=== PATIENT | female | born 1980 | race African-American/Black ===

== ENCOUNTER 2021-11-26 07:30 | Emergency (ER) | payer OTHER ==
[~2021-11-26] VITALS: Ht 175.3 cm; Wt 99.8 kg
[2021-11-26 07:54] VITALS: BP 134/85
== END 2021-11-26 08:01 | disposition home or self-care (01) ==
LOC: ER 07:30
DX: G44.209 Tension-type headache, unspecified, not intractable (principal)

== ENCOUNTER 2022-01-31 02:16 | Emergency (ER) | payer OTHER, MEDICAID ==
[~2022-01-31] VITALS: Ht 175.3 cm; Wt 99.8 kg
[2022-01-31 02:17] VITALS: BP 137/91
[2022-01-31] MEDS ORDERED: ACETAMINOPHEN 500 MG TAB PO ONE (03:00)
== END 2022-01-31 02:56 | disposition home or self-care (01) ==
LOC: ER 02:16
DX: S96.911A Strain of unspecified muscle and tendon at ankle and foot level, right foot, initial encounter (principal); Z88.8 Allergy status to other drugs, medicaments and biological substances; X58.XXXA Exposure to other specified factors, initial encounter; Y93.89 Activity, other specified; Y92.89 Other specified places as the place of occurrence of the external cause; Y99.8 Other external cause status

== ENCOUNTER 2022-05-14 16:11 | Emergency (ER) | payer OTHER, MEDICAID ==
[~2022-05-14] VITALS: Ht 175.3 cm; Wt 109.0 kg
[2022-05-14 16:25] VITALS: BP 145/91
[2022-05-14 17:17] LABS: Basophils # (auto) 0.1 10 ^3/uL (0-0.2); Basophils % (auto) 0.6 % (0.0-2.0); Eosinophils # (auto) 0 10 ^3/uL (0-0.8); Eosinophils % (auto) 0.5 % (0.0-7.0); Hematocrit 39.7 % (36.0-46.0); Hemoglobin 12.9 g/dL (12.2-16.2); Lymphocytes # (auto) 0.9 10 ^3/uL (0.4-5.4); Lymphocytes % (auto) 9.1 % (10.0-50.0); Mean Corpuscular Hgb Conc. 32.5 g/dL (32.0-36.0); Mean Corpuscular Volume 95.4 fL (80.0-100.0); Monocytes # (auto) 0.6 10 ^3/uL (0-1.3); Monocytes % (auto) 6.2 % (0.0-12.0); Neutrophils # (auto) 8.1 10 ^3/uL (1.6-8.6); Neutrophils % (auto) 83.6 % (37.0-80.0); Nucleated Red Blood Cells % 0.1 %; Red Blood Cells 4.16 10^6/uL (4.0-5.20); Red Cell Distribution Width 13.7 % (11.8-14.3); White Blood Cell 9.7 10^3/uL (4.4-10.8)
[2022-05-14 17:37] LABS: Albumin 3.6 g/dL (3.4-5.0); BUN/Creatinine Ratio 19.3; Calcium 8.7 mg/dL (8.5-10.1); Potassium 3.9 mmol/L (3.5-5.1)
[2022-05-14 17:41] LABS: Bilirubin, Total 0.4 mg/dL (0.2-1.0); Total Protein 7.6 g/dL (6.4-8.2)
== END 2022-05-14 22:58 | disposition left against medical advice (07) ==
LOC: ER 16:11
DX: R06.00 Dyspnea, unspecified (principal); Z90.710 Acquired absence of both cervix and uterus; Z53.29 Procedure and treatment not carried out because of patient's decision for other reasons
CPT/HCPCS: 36415; 36600; 71046; 80053; 82805; 85025; 85379; 93005

== ENCOUNTER 2023-12-13 22:49 | Emergency (ER) | payer MEDICAID, OTHER ==
[~2023-12-13] VITALS: Ht 175.3 cm; Wt 113.7 kg
[2023-12-13 23:40] VITALS: BP 184/90; PULSE 87; RESP 18; TEMP 98.2; O2SAT 100
[2023-12-14] MEDS ORDERED: CEPH500C PO (03:10)
[2023-12-14] MEDS ORDERED: IBUP1TAB5 PO (03:10)
[2023-12-14] MEDS: TETANUS-DIPTH-ACEL PERTUSSIS 0.5ML SYR Tdap IM ONE (03:15)
[2023-12-14] MEDS: HYDROcodone-ACET 5/325MG TAB PO ONE (03:15)
== END 2023-12-14 03:05 | disposition home or self-care (01) ==
LOC: ER 22:49
DX: S01.511A Laceration without foreign body of lip, initial encounter (principal); S83.92XA Sprain of unspecified site of left knee, initial encounter; S83.91XA Sprain of unspecified site of right knee, initial encounter; S06.0X0A Concussion without loss of consciousness, initial encounter; Y04.2XXA Assault by strike against or bumped into by another person, initial encounter; Y93.89 Activity, other specified; Y92.89 Other specified places as the place of occurrence of the external cause; Y99.8 Other external cause status
CPT/HCPCS: 12013; 70450; 70486

== ENCOUNTER 2025-03-14 04:07 | Emergency (ER) | payer MEDICAID ==
[~2025-03-14] VITALS: Ht 175.3 cm; Wt 114.0 kg
[~2025-03-14 04:07] MED LIST: CEPH500C PO; IBUP1TAB5 PO
[2025-03-14 04:30] VITALS: BP 158/90; PULSE 78; RESP 20; TEMP 98.3; O2SAT 98
--- NOTE | 2025-03-14 04:46 | ED.PDOC ---
Back pain HPI HPI Comments PT C/O 05/04 LOWER BACK AND SHOULDER PAIN X 1 DAY. PT DENIES ANY PAIN ON URINATION, AND TRAUMA OR INJURY. DENIES NUMBNESS, WEAKNESS, LOSS OF BOWEL OR BLADDER CONTROL, KNOWN INJURY, OR SADDLE ANESTHESIA. 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 Family History Family History: Unknown Social History Smoker: Non-Smoker Alcohol: Occasionally Drugs: Denies Drug Use Lives In: Home Constitutional: denies: chills, diaphoresis, fatigue, fever, malaise, sweats, weakness, others EENTM: denies: blurred vision, double vision, ear bleeding, ear discharge, ear drainage, ear pain, ear ringing, eye pain, eye redness, hearing loss, mouth pain, mouth swelling, nasal discharge, nose bleeding, nose congestion, nose pain, photophobia, tearing, throat pain, throat swelling, voice changes, others Respiratory: denies: cough, hemoptysis, orthopnea, SOB at rest, shortness of breath, SOB with excertion, stridor, wheezing, others Cardiovascular: denies: chest pain, dizzy spells, diaphoresis, Dyspnea on exertion, edema, irregular heart beat, left arm pain, lightheadedness, palpitations, PND, syncope, others Gastrointestinal: denies: abdomen distended, abdominal pain, blood streaked bowels, constipated, diarrhea, dysphagia, difficulty swallowing, hematemesis, melena, nausea, poor appetite, poor fluid intake, rectal bleeding, rectal pain, vomiting, others Genitourinary: denies: abnormal vagina bleeding, burning, dyspareunia, dysuria, flank pain, frequency, hematuria, incontinence, pain, , vagina discharge, urgency, others Neurological: denies: dizziness, fainting, headache, left sided numbness, left sided weakness, numbness, paresthesia, pre-existing deficit, right sided numbness, right sided weakness, seizure, speech problems, tingling, tremors, weakness, others Musculoskeletal: reports: back pain; denies: gout, joint pain, joint swelling, muscle pain, muscle stiffness, neck pain, others Integumetry: denies: bruises, change in color, change in hair/nails, dryness, laceration, lesions, lumps, rash, wounds, others Allergic/Immunocompromised: denies: Difficulty Healing, Frequent Infections, Hives, Itching, others Hematologic/Lymphatic: denies: anemia, blood clots, easy bleeding, easy bruising, swollen glands, others Endocrine: denies: excessive hunger, excessive sweating, excessive thirst, excessive urination, flushing, intolerance to cold, intolerance to heat, unexplained weight gain, unexplained weight loss, others Psychiatric: denies: anxiety, bipolar disorder, depression, hopeless, panic disorder, schizophrenia, sleepless, suicidal, others Physical Exam General Appearance: No Apparent Distress, Normal HEENT: Pharynx Normal Neck: Full Range of Motion, Non-Tender Respiratory: Lungs Clear, No Respiratory Distress, Normal Breath Sounds Cardiovascular: No Murmur, Normal Peripheral Pulses, Regular Rate/Rhythm Breast Exam: Deferred Gastrointestinal: No Organomegaly, Non Tender, No Pulsatile Mass, Normal Bowel Sounds, Soft Genitalia: Deferred Pelvic: Deferred Rectal: Deferred Extremities: Normal capillary refill, Normal inspection, Normal range of motion, Non-tender, No pedal edema Musculoskeletal : Location: Bilateral Extremity Location: Back (MODERATE TENDERNESS PALPATED OVER LOWER BILATERAL BACK MUSCULATURE. STRENGTH SENSORY MOTION INTACT NEGATIVE STRAIGHT LEG RAISE BILATERAL POSITIVE PEDAL PULSES. ) Apperance: Normal Neurologic: Alert, No Motor Deficits, Normal Affect, Normal Mood, No Sensory Deficits Cerebellar Function: Normal Reflexes: Normal Skin: Dry, Normal Color, Warm Lymphatic: No Adenopathy Was a procedure done? Was a procedure done?: No Back Pain Differential Dx Differential Diagnosis: Fracture, Musculoskeletal Pain, Strain X-Ray, Labs, Meds, VS Vital Signs Date Time Temp Pulse Resp B/P (MAP) Pulse Ox O2 Delivery O2 Flow Rate FiO2 03/14/25 04:30 98.3 78 20 158/90 (112) 98 98.3 Current Medications Medications (Trade) Dose Ordered Sig/Kat[place] Route Start Time Stop Time Status Last Admin Dexamethasone Sodium Phosphate (Decadron Injection) 10 mg ONCE ONCE IM 03/14/25 05:00 03/14/25 05:01 DC 03/14/25 05:09 Acetaminophen/ Hydrocodone Bitart (Sedan 5/325MG Tab) 1 tab ONCE ONCE PO 03/14/25 05:00 03/14/25 05:01 DC 03/14/25 05:09 X-Ray, Labs, Meds, VS Comment LUMBAR SPINE SHOWS NO ACUTE FRACTURES SUBLUXATIONS OR OSSEOUS LESIONS. PATIENT WAS GIVEN DECADRON 10 MG IM AND NORCO 5 MG P.O. REPORTS IMPROVEMENT IN PAIN AND FUNCTION REQUESTING DISCHARGE AT THIS TIME. SCRIPT TRIAL OF MUSCLE RELAXER AND MEDROL DOSEPAK. TAKE MEDICATIONS PRESCRIBED SIDE EFFECTS DISCUSSED. ADVISED ON HEAT AND ICE. ADVISED TO FOLLOW UP WITH HER PCP IN 2-3 DAYS CONSIDER FURTHER IMAGING SUCH MRI IF SYMPTOMS PERSIST OR REFERRAL TO PHYSICAL THERAPY. ER RETURN PRECAUTIONS GIVEN PATIENT INDICATES UNDERSTANDING AGREES WITH DISCHARGE PLAN OF CARE. Time of 1ST Reevaluation: 04:12 Reevaluation 1ST: Unchanged Time of 2ND Reevaluation: 05:29 Reevaluation 2ND: Improved Patient Education/Counseling: Diagnosis, Treatment, Prognosis, Need For Follow Up Family Education/Counseling: No Family Present SEPSIS Sepsis Screen Physician Orders Lumbar Spine 3 View (03/14/25 04:47) Urinalysis (03/14/25 04:47) Vital Signs Date Time Temp Pulse Resp B/P (MAP) Pulse Ox O2 Delivery O2 Flow Rate FiO2 03/14/25 04:30 98.3 78 20 158/90 (112) 98 98.3 Medications Medications Dose Ordered Sig/[place] Route Start Time Stop Time Status Last Admin Dose Admin Acetaminophen/ Hydrocodone Bitart 1 tab ONCE ONCE PO 03/14/25 05:00 03/14/25 05:01 DC 03/14/25 05:09 Dexamethasone Sodium Phosphate 10 mg ONCE ONCE IM 03/14/25 05:00 03/14/25 05:01 DC 03/14/25 05:09 Departure 1 Departure Time of Disposition: 05:29 Impression: Primary Impression: Lumbar sprain Qualified Codes: S33.5XXA - Sprain of ligaments of lumbar spine, initial enc ounter Additional Impression: Musculoskeletal pain Disposition: HOME / SELF CARE / HOMELESS Condition: Stable e-Prescriptions Methylprednisolone (Medrol Dosepak) 4 Mg Lexx 4 MG PO UD for 6 Days, #21 TAB UAD Prov: LETY GARNER 03/14/25 Tizanidine Hydrochloride (Tizanidine Hcl) 4 Mg Tab 4 MG PO BID PRN for 5 Days, #10 TAB Prov: LETY GARNER 03/14/25 Discharged With: Self Critical Care Note Critical Care Time?: No Stability Stability form required: No LETY GARNER Mar 14, 2025 04:46
[2025-03-14] MEDS ORDERED: KETOROLAC TROMETH 60MG/2ML VIAL IM ONE (05:00)
[2025-03-14] MEDS: HYDROcodone-ACET 5/325MG TAB PO ONE (05:09)
--- NOTE | 2025-03-14 05:19 | DVH ---
INDICATION: LOW BACK PAIN COMPARISON: None TECHNIQUE: 2 views of the lumbar spine were obtained. FINDINGS: The lumbar vertebral alignment is normal. The intervertebral disc spaces are well-maintained. No significant facet arthropathy is noted. No acute fracture, vertebral compression deformity or aggressive osseous lesions. The paravertebral soft tissues are grossly unremarkable. IMPRESSION: 1. No acute fracture.
[2025-03-14] MEDS ORDERED: TIZA-142 PO (05:31)
[2025-03-14] MEDS ORDERED: METH4PAK PO (05:31)
[2025-03-14 08:56] LABS: Urine Protein, UAD Negative (Negative)
== END 2025-03-14 06:41 | disposition home or self-care (01) ==
LOC: ER 04:07
DX: S33.5XXA Sprain of ligaments of lumbar spine, initial encounter (principal); M54.50 Low back pain, unspecified; F10.90 Alcohol use, unspecified, uncomplicated; Z90.710 Acquired absence of both cervix and uterus; Z98.890 Other specified postprocedural states; Z79.899 Other long term (current) drug therapy; Z88.6 Allergy status to analgesic agent; X58.XXXA Exposure to other specified factors, initial encounter; Y93.89 Activity, other specified; Y92.89 Other specified places as the place of occurrence of the external cause; Y99.8 Other external cause status; Y90.9 Presence of alcohol in blood, level not specified
CPT/HCPCS: 72100; 81001; 96372; 99284; J1100